=== PATIENT | female | born 1955 | race Caucasian/White ===

== ENCOUNTER 2018-10-09 07:13 | Outpatient (CLI) | payer OTHER ==
--- NOTE | 2018-10-09 08:28 | ULT ---
ABDOMINAL ULTRASOUND: HISTORY: Epigastric pain FINDINGS: Multiple longitudinal and transverse images of the abdomen are obtained using a MultiHertz curvilinea r transducer. Real-time, color flow and spectral waveform Doppler analysis is used to evaluate the abdomen. A right-sided pleural effusion is seen. The liver and spleen are unremarkable. No evidence of hepatic or splenic parenchymal abnormality seen . The gallbladder contains numerous echogenic foci compatible with numerous gallstones. No evidence of gallbladder wall thickening seen. No evidence of pericholecystic fluid seen. Common bile duct is of abnormal size measuring 4.5 mm. Normal hepatopedal flow seen in the portal system. Visualized portion of the pancreas is unremarkable. The right and left kidneys are unremarkable. Right kidney measures 9.9 and left kidney 10.9 cm from p ole to pole. Abdominal aorta and inferior vena cava are unremarkable. IMPRESSION: Cholelithiasis. Transcribed Date/Time: 10/09/2018 8:32 AM
== END 2018-10-09 07:14 | disposition home or self-care (01) ==
LOC: ULT 07:13
PROVIDERS: ATTEND Nurse Practitioner Family
DX: R10.13 Epigastric pain (principal); K80.20 Calculus of gallbladder without cholecystitis without obstruction
CPT/HCPCS: 76700

== ENCOUNTER 2018-10-18 10:11 | Outpatient (CLI) | payer OTHER ==
[2018-10-18 11:45] LABS: ALT (SGPT) 15 U/L (8-55); AST (SGOT) 15 U/L (5-34); Albumin 4.1 g/dL (3.4-4.8); Alkaline Phosphatase 154 U/L (40-150); Bilirubin, Direct 0.6 mg/dL (0.1-0.3); Bilirubin, Total 1.4 mg/dL (0.2-1.2)
--- NOTE | 2018-10-24 14:30 | EKG ---
Test Reason : Blood Pressure : / mmHG Vent. Rate : 094 BPM Atrial Rate : 094 BPM P-R Int : 126 ms QRS Dur : 080 ms QT Int : 360 ms P-R-T Axes : 026 008 007 degrees QTc Int : 450 ms Normal sinus rhythm Possible Anterolateral infarct , age undetermined Abnormal ECG Confirmed by JAOSN GARCIA ([id number]) on 10/24/2018 2:30:38 PM Referred By: OJSE Confirmed By:JASON GARCIA
== END 2018-10-18 10:12 | disposition home or self-care (01) ==
LOC: LABBT 10:11
PROVIDERS: ATTEND Specialist
DX: Z01.818 Encounter for other preprocedural examination (principal); K80.10 Calculus of gallbladder with chronic cholecystitis without obstruction
CPT/HCPCS: 80076; 93005; 93010

== ENCOUNTER 2018-10-19 10:52 | Inpatient (IN) | payer OTHER ==
[2018-10-18 10:57] VITALS: BMI 52.9
--- NOTE | 2018-10-19 07:29 | HP ---
HISTORY OF PRESENT ILLNESS: Tram Lynch is a 63-year-old female, followed by Dr. Ríos at [facility], presents with several episodes of right upper quadrant pain, back radiation and nausea. She has been treated for this by PPIs, muscle relaxants, pending her ultrasound, which revealed a 4-mm bile duct. Normal liver findings with gallstones. She had laboratories performed on 09/27/2018 with a normal urinalysis. Normal amylase and lipase. White count 10, hemoglobin 14.3, and platelet count 414,000. Sodium 138, potassium 3.6, BUN 12, creatinine 0.91, and glucose 117. Bilirubin was 3.3, AST 203, ALT 294, alkaline phosphatase 409. Lipase 24. Triglycerides 120, cholesterol 261. The patient presents for discussion regarding her cholelithiasis with a normal bile duct caliber with elevated liver function tests. SOCIAL HISTORY: Tobacco, none. Alcohol, none. MEDICATIONS: 1. Dicyclomine. 2. Prilosec. 3. Ranitidine. 4. Aleve. 5. Ibuprofen. PAST SURGICAL HISTORY: Tubal ligation, tonsillectomy. PAST MEDICAL HISTORY: Noncontributory. REVIEW OF SYSTEMS: Ten-point noncontributory. FAMILY HISTORY: Noncontributory. PHYSICAL EXAMINATION: VITAL SIGNS: Weight 321 pounds, height 66 inches, 51 BMI. Blood pressure 115/74, pulse 93, and temperature 96.8 degrees. HEAD, EYES, EARS, NOSE, AND THROAT: Unremarkable. Sclerae are nonicteric. Skin, nonjaundiced. NECK, AXILLA, AND GROINS: No lymphadenopathy neck, axilla, or groins. LUNGS: Clear to auscultation. CARDIAC: Regular rate and rhythm without murmur or gallop. ABDOMEN: Obese, soft, tenderness in right upper quadrant with mild guarding. EXTREMITIES: Unremarkable. No ankle edema. Palpable pulses. ASSESSMENT AND PLAN: Elevated liver function tests. Normal bile duct caliber, cholecystitis, cholelithiasis. We would recommend laparoscopic video cholecystectomy and cholangiograms. Risk of infection, bleeding, visceral and biliary injury discussed. Possibility of an ERCP discussed. Pending cholangiogram findings. Questions answered. Job ID: [id number]
[2018-10-19] MEDS ORDERED: Iothalamate Meglumine 60% 50 ML VIAL FS ONE (12:10)
[2018-10-19] MEDS ORDERED: Bupivacaine HCl 0.5%/Epinephrine 1:200,000/PF 30 ml Vial ONE (12:10)
[2018-10-19] MEDS ORDERED: Levofloxacin 500 mg/D5W 100 ml Premix Bag ONE (12:20)
[2018-10-19] MEDS ORDERED: Ketorolac Tromethamine 30 MG/ML VIAL ONE (12:20)
[2018-10-19] MEDS ORDERED: Midazolam HCl 2 mg/2 ml Vial ONE (12:40)
[2018-10-19] MEDS ORDERED: Fentanyl 100 MCG/2 ML VIAL ONE (12:40)
[2018-10-19] MEDS ORDERED: Lidocaine 2% Jelly 5 ML TUBE ONE (12:40)
[2018-10-19] MEDS ORDERED: Ondansetron PF 4 MG/2 ML Vial IVP PRN (14:36)
[2018-10-19] MEDS ORDERED: hydrALAZINE 20 MG/ML VIAL SLOW IVP PRN (14:36)
[2018-10-19] MEDS ORDERED: Ondansetron ODT 4 MG TAB PO PRN (14:36)
[2018-10-19] MEDS ORDERED: Morphine 4 MG/ML VIAL SLOW IVP PRN ×2 (14:36)
[2018-10-19] MEDS ORDERED: traMADol HCl 50 MG TAB PO PRN ×3 (14:41→18:08)
[2018-10-19] MEDS ORDERED: Ketorolac Tromethamine 30 MG/ML VIAL IVP PRN (14:41)
[2018-10-19] MEDS ORDERED: Acetaminophen 1,000 MG in Premix Bag 1 BAG IVPB PRN (14:41)
--- NOTE | 2018-10-19 14:57 | RAD ---
OPERATIVE CHOLANGIOGRAM: INDICATIONS: Intraoperative imaging of the common bile duct during cholecystectomy procedure. TECHNIQUE: Two fluoroscopic views from the operative cholangiogram are presented. FINDINGS/IMPRESSION: There are numerous small, rounded filling defects in the distal common duct, near the ampulla, consis tent with numerous retained stones. At least five stones are apparent. There is a filling defect in the mid common duct, near the orifice of the cystic duct, which may repr esent a small stone at this site. POS: ALESSANDRA
[2018-10-19] MEDS ORDERED: Ondansetron PF 4 MG/2 ML Vial ONE (16:44)
[2018-10-19] MEDS ORDERED: Rocuronium Bromide 10 MG/ML (10ML VIAL) ONE (16:44)
[2018-10-19] MEDS ORDERED: Succinylcholine Chloride 20 MG/ML 10 ml SYRINGE ONE (16:44)
[2018-10-19] MEDS ORDERED: PROPOFOL 200 MG/20 ML VIAL ONE (16:44)
[2018-10-19] MEDS ORDERED: Lidocaine 1% PF 5 ML VIAL ONE (16:44)
[2018-10-19] MEDS ORDERED: Dexamethasone 20 MG/5 ML VIAL ONE (16:44)
[2018-10-19] MEDS ORDERED: Succinylcholine Chloride 20 MG/ML 10 ml SYRINGE FS ONE (16:44)
[2018-10-19] MEDS ORDERED: Glycopyrrolate 0.2 MG/ML 5 ML SYRINGE ONE (16:44)
[2018-10-19] MEDS: Lactated Ringer's 1,000 ML IV SCH (18:21)
[2018-10-19] MEDS ORDERED: Enoxaparin Sodium 40 MG/0.4 ML SYRINGE SC SCH (21:00)
--- NOTE | 2018-10-19 21:21 | OP ---
DATE OF PROCEDURE: 10/19/2018 PREOPERATIVE DIAGNOSES: Acute on chronic cholecystitis, cholelithiasis, choledocholithiasis, suspect nondilated biliary tree, bilirubin dropped from 3 to 1.5 in the last few days. POSTOPERATIVE DIAGNOSES: Acute on chronic cholecystitis, cholelithiasis, choledocholithiasis, suspect nondilated biliary tree, bilirubin dropped from 3 to 1.5 in the last few days. PROCEDURES PERFORMED: Laparoscopic video cholecystectomy, cholangiograms using fluoroscopy, revealing multiple filling defects in the common bile duct. Note: Discussed this finding with Dr. Amadou Sandoval, Gastroenterology, who is compensation programs manager, who will see her this evening and plan ERCP and sphincterotomy tomorrow. Plan admission postoperatively. ANESTHESIA: General, local 0.5% Marcaine with epinephrine 30 mL total volume used. Note: Subxiphoid fascia was approximated with 0 Vicryl UR needle due to requirement for large incision due to acute cholecystitis with gallbladder removed in Endobag. DESCRIPTION OF PROCEDURE: The patient was taken to the operating room where under general anesthesia, abdomen was prepared with ChloraPrep and draped in routine fashion. Local anesthetic was infiltrated into the skin and subcutaneous tissue about each port site. Infraumbilical incision was made and pneumoperitoneum to 15 mmHg the was obtained with a Veress needle, replaced with a 5 port and laparoscope inserted. Right subxiphoid incision was made and 11 port placed, right subcostal incision was made, midclavicular entrance line, and a 5 port was placed. Liver appeared to be normal although firm, was early fatty. Gallbladder was not immediately visible and required removal of the omentum from around the gallbladder. There was acute inflammatory changes with fibrinopurulent exudate. Fundus of the gallbladder grasped and drained clear to purulent material. Fundus resected cephalad. Careful dissection of the fatty tissue from the surrounding liver and gallbladder body carried out using cautery for hemostasis, identifying the infundibulum of the gallbladder, grasped and reflected laterally. Further dissection in this acute inflammatory field revealed the cystic artery and duct, cystic artery doubly clipped proximally, cystic duct singly clipped on the gallbladder side. Opening was made in the cystic duct, cholangiocatheter inserted, and cholangiogram was obtained using fluoroscopy revealing slightly dilated common hepatic common bile, left and right hepatic duct with filling defects, multiple in common bile duct. This was flushed with saline and cholangiograms repeated and the filling defect persisted. Cholangiocatheter removed. Cystic duct stump doubly clipped. I discussed this with Dr. Amadou Sandoval, Gastroenterology, who will see the patient this evening and plan ERCP in the morning. Cystic artery and duct doubly clipped, proximally divided, gallbladder dissected free from liver bed obtaining good hemostasis prior to division of the final peritoneal attachments. Gallbladder and contents placed in Endobag removed. Good hemostasis obtained with cautery. Darshan sprayed in the liver bed. Subxiphoid fascia approximated with [id number] suture of 0 Vicryl. All incisions irrigated. Skin incisions were approximated with interrupted subdermal 4-0 Monocryl and [place] glue applied. Job ID: [id number]
--- NOTE | 2018-10-20 00:43 | CON ---
DATE OF CONSULTATION: 10/19/2018 REQUESTING PHYSICIAN: Salomon Lopez MD. REASON FOR CONSULTATION: Choledocholithiasis. HISTORY OF PRESENT ILLNESS: Tram Lynch is a very pleasant 63-year-old woman with a history of obesity and chronic reflux. She also has a history of episodic biliary colic going on for several months intermittently. Workup performed by Dr. Lopez demonstrated cholelithiasis with normal caliber common bile duct. Laboratories back in September had shown normal amylase and lipase, but elevated LFTs with bilirubin of 3.3. She underwent uncomplicated laparoscopic cholecystectomy with intraoperative cholangiogram earlier today. The surgery went well, but on cholangiogram, there were numerous filling defects in the distal common bile duct consistent with choledocholithiasis. Postoperatively, the patient says she is feeling quite well. No significant abdominal pain. She is having a bit of liquid diet for dinner and feeling okay. We are consulted due to the finding of choledocholithiasis on the cholangiogram. PAST MEDICAL HISTORY: Obesity, GERD, tubal ligation, tonsillectomy, cholecystectomy earlier today on 10/19/2018. ALLERGIES: NO KNOWN DRUG ALLERGIES. OUTPATIENT MEDICATIONS: 1. Dicyclomine. 2. Prilosec. 3. Ranitidine. 4. Aleve. 5. Ibuprofen. FAMILY HISTORY: Noncontributory. SOCIAL HISTORY: No tobacco or alcohol abuse. REVIEW OF SYSTEMS: Full review of systems including constitutional, head, eyes, ears, nose, throat, GI, , cardiovascular, respiratory, musculoskeletal, neurologic systems are negative except as noted in the HPI. PHYSICAL EXAMINATION: VITAL SIGNS: Temperature 98.2, pulse 71, blood pressure 138/82, and 93% oxygen saturation on room air. GENERAL: 63-year-old woman, sitting up in bed comfortably, in no distress. HEART: Regular rate and rhythm. LUNGS: Clear to auscultation bilaterally. ABDOMEN: Surgical incisions look good. The abdomen is soft. Bowel sounds hypoactive, but present. Mild generalized tenderness to palpation. EXTREMITIES: No peripheral edema. HEENT: Eyes, no scleral icterus. Extraocular movements intact. ENT; mucous membranes moist. No oral lesions. LYMPH: No submandibular or supraclavicular lymphadenopathy. Thyroid is nontender to palpation. SKIN: No jaundice. NEUROLOGIC: Cranial nerves II through XII intact bilaterally. No focal deficits. LABORATORY STUDIES: Labs from yesterday 10/18/2018, demonstrated total bilirubin 1.4, direct bilirubin 0.6, alkaline phosphatase 154, AST 15, ALT 15. Labs from 09/27/2018, shown total bilirubin 3.3, alkaline phosphatase 409, AST 203, ALT 294, lipase 24. WBC 10.3, hemoglobin 14.3, platelets 414. IMAGING STUDIES: Abdominal ultrasound from 10/09/2018, had demonstrated cholelithiasis with normal common bile duct measuring 4.5 mm. Intraoperative cholangiogram from earlier today demonstrates numerous small round filling defects in the distal common bile duct, at least 5 stones apparent, consistent with retained stones near the ampulla. There is also a filling defect in the mid common bile duct near the orifice of the cystic duct, which may also represent a small stone. ASSESSMENT AND PLAN: 1. Choledocholithiasis. 2. Elevated LFTs. I had a long discussion with the patient regarding the intraoperative cholangiogram findings of choledocholithiasis. It is likely she has been having intermittent biliary colic secondary to the stones bouncing around in the duct. She is going to need ERCP for biliary sphincterotomy and stone extraction to clear the common bile duct. I discussed the benefits and also risks of the procedure with the patient, including the risks of post ERCP pancreatitis. The patient expresses understanding and does desire to proceed. We will plan for ERCP tomorrow morning. Thank you for the consultation. Please call anytime with questions or concerns. Job ID: [id number]
[2018-10-20] MEDS: Lactated Ringer's 1,000 ML IV SCH ×2 (01:56→11:09)
[2018-10-20 05:59] LABS: Phosphorus 2.7 mg/dL (2.3-4.7)
[2018-10-20 06:02] LABS: ALT (SGPT) 40 U/L (8-55); AST (SGOT) 74 U/L (5-34); Albumin 3.3 g/dL (3.4-4.8); Alkaline Phosphatase 204 U/L (40-150); Anion Gap 14 mmol/L (10-20); BUN (Urea Nitrogen) 14 mg/dL (9.8-20.1); Calc. Creatinine Clearance 165 mL/min (70-130); Calcium 9.8 mg/dL (7.8-10.44); Carbon Dioxide 25 mmol/L (23-31); Chloride 101 mmol/L (98-107); Estimated GFR-MDRD 70; Globulin 3.5 g/dL (2.4-3.5); Glucose 121 mg/dL (80-115); Magnesium 1.8 mg/dL (1.6-2.6); Potassium 4.2 mmol/L (3.5-5.1); Protein, Total 6.8 g/dL (6.0-8.3); Sodium 136 mmol/L (136-145)
[2018-10-20 06:38] LABS: Band 9 % (5-11); Hemoglobin 11.6 g/dL (12.0-16.0); Lymphocytes 6 % (21-51); MDiff Complete? YES; Mean Corpuscular HGB CONC 33.1 g/dL (32.0-36.0); Mean Corpuscular Hemoglobin 30.3 pg (27.0-31.0); Mean Corpuscular Volume 91.6 fL (78.0-98.0); Mean Platelet Volume 6.8 fL (7.4-10.4); Monocytes 4 % (0-10); Neutrophil 81 % (42-75); Platelet Count 361 thou/uL (130-400); RBC Distribution Width 12.1 % (11.5-14.5); Red Blood Cell (RBC) Count 3.83 mill/uL (4.20-5.40)
[2018-10-20] MEDS ORDERED: Indomethacin 50 MG SUPP ONE (08:45)
[2018-10-20] MEDS ORDERED: Iothalamate Meglumine 60% 50 ML VIAL FS ONE (08:45)
[2018-10-20] MEDS ORDERED: Fentanyl 100 MCG/2 ML VIAL ONE (08:46)
[2018-10-20] MEDS ORDERED: Polyethylene Glycol 3350 17 GM Packet PO SCH (09:00)
[2018-10-20] MEDS ORDERED: Pantoprazole 40 MG VIAL IVP SCH (09:00)
[2018-10-20] MEDS ORDERED: Ketorolac Tromethamine 30 MG/ML VIAL IVP PRN (10:13)
[2018-10-20] MEDS ORDERED: Promethazine HCl 25 MG/ML VIAL IM PRN (10:13)
[2018-10-20] MEDS ORDERED: Promethazine HCl 25 MG/ML VIAL SLOW IVP PRN (10:13)
[2018-10-20] MEDS ORDERED: PACU-Morphine 4MG/ML VIAL SLOW IVP PRN (10:13)
--- NOTE | 2018-10-20 11:51 | OP ---
DATE OF PROCEDURE: 10/20/2018 ATMOSPHERIC TECHNICIAN SURGEON: None. PROCEDURE PERFORMED: Endoscopic retrograde cholangiopancreatography, incomplete, secondary to inability to pass the duodenoscope beyond the pylorus. INDICATION: Choledocholithiasis, as demonstrated on positive intraoperative cholangiogram and cholecystectomy yesterday. MEDICATIONS: See Anesthesia record. FINDINGS: After discussion of the risks, benefits, and alternatives of the procedure, informed consent was obtained and witnessed. Pre-endoscopic cardiopulmonary examination was satisfactory. Time-out was performed before sedation was achieved. Sedation was achieved with Anesthesia assistance in the endoscopy unit. The patient was placed in a prone position on the fluoroscopy table, endotracheally intubated under general anesthesia. A Pentax adult duodenoscope was inserted into the mouth and passed beyond the esophagus and into the stomach. The patient has a J-shaped stomach with the pylorus pointing basically 180 degrees away from the entrance of the stomach at the GE junction. Despite spending over 30 minutes in the attempt, I was unable to advance the duodenoscope beyond the pylorus, due to looping of the endoscope within the J-shaped stomach. This was despite attempts at manual pressure and even repositioning of the patient. Eventually, it was decided to abort the procedure and the duodenoscope was completely removed with suctioning out excess air and fluid. The patient tolerated the procedure well. There were no immediate postprocedure complications. 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 Inability to advance the duodenoscope beyond the pylorus. RECOMMENDATIONS: 1. Advance diet. Discharged home when okay with Surgical Service. 2. We will refer the patient to Dr. Nadir France in [place], for repeat attempt at ERCP. Note, the patient has only mild AST elevation and is relatively asymptomatic at this time, so outpatient referral should be appropriate. Job ID: [id number]
[2018-10-20] MEDS ORDERED: Ondansetron PF 4 MG/2 ML Vial ONE (12:20)
[2018-10-20] MEDS ORDERED: Lidocaine 1% PF 5 ML VIAL ONE (12:20)
[2018-10-20] MEDS ORDERED: PROPOFOL 200 MG/20 ML VIAL ONE (12:20)
[2018-10-20] MEDS ORDERED: Glycopyrrolate 0.2 MG/ML 5 ML SYRINGE ONE (12:20)
[2018-10-20] MEDS ORDERED: Rocuronium Bromide 10 MG/ML (10ML VIAL) ONE (12:20)
[2018-10-20] MEDS ORDERED: Dexamethasone 20 MG/5 ML VIAL ONE (12:20)
[2018-10-20] MEDS ORDERED: Acetaminophen 500 MG TAB PO PRN (14:41)
[2018-10-20 15:16] VITALS: BP 121/81; TEMP 98.3
[2018-10-24] MEDS ORDERED: Ibuprofen 600 MG TAB PO PRN (14:41)
== END 2018-10-20 17:05 | disposition home or self-care (01) | DRG 418 ==
LOC: SDC 10:52 → SURG B 16:10
PROVIDERS: ADMIT Specialist; ATTEND Specialist
PROC: 0FT44ZZ Resection of Gallbladder, Percutaneous Endoscopic Approach (ICD-10-PCS; principal; 2018-10-19)
PROC: 0DJ68ZZ Inspection of Stomach, Via Natural or Artificial Opening Endoscopic (ICD-10-PCS; 2018-10-20)
DX: K80.46 Calculus of bile duct with acute and chronic cholecystitis without obstruction (principal); K80.10 Calculus of gallbladder with chronic cholecystitis without obstruction; Z68.43 Body mass index [BMI] 50.0-59.9, adult; K31.89 Other diseases of stomach and duodenum; K21.9 Gastro-esophageal reflux disease without esophagitis; E66.9 Obesity, unspecified; Z79.899 Other long term (current) drug therapy; Z79.1 Long term (current) use of non-steroidal anti-inflammatories (NSAID)
CPT/HCPCS: 36415; 36416; 47532; 76000; 80053; 80076; 83735; 84100; 85025; 88304; 93005; 93010; J0131; J0670; J1100; J1610; J1650; J1885; J1956; J2001; J2250; J2405; J2704; J3010; Q9961